=== PATIENT | female | born 1995 | race Caucasian/White ===

== ENCOUNTER 2017-11-20 14:14 | Emergency (ER) | payer MEDICAID ==
[2017-11-20] MEDS: HYDROCODONE/APAP (5/325) TAB PO (16:44)
[2017-11-20 17:07] LABS: ADD MAN DIFF? NO
[2017-11-20 17:08] LABS: WHITE BLOOD COUNT 10.8 10^3/ul (4.8-10.8)
[2017-11-20 17:08] LABS: BASOPHIL # 0.1 10^3/ul (0.0-0.1); BASOPHILS % 0.5 % (0.0-2.0); EOSINOPHILS % 0.1 % (0.0-7.0); HEMATOCRIT 40.2 % (37.0-47.0); HEMOGLOBIN 13.8 g/dl (12.0-16.0); LYMPHOCYTES % 9.3 % (15.0-51.0); MEAN CORPUSCULAR HEMOGLOBIN 31.4 pg (29.0-33.0); MEAN CORPUSCULAR HGB CONC 34.3 g/dl (32.0-37.0); MEAN CORPUSCULAR VOLUME 91.6 fl (82.0-101.0); MEAN PLATELET VOLUME 10.3 fl (7.4-10.4); MONOCYTE # 0.5 10^3/ul (0.3-0.9); MONOCYTES % 4.9 % (0.0-11.0); NEUTROPHIL # 9.1 10^3/ul (1.6-7.5); NEUTROPHILS % 84.8 % (39.0-77.0); PLATELET COUNT 296 10^3/UL (140-415); RED BLOOD COUNT 4.39 10^6/ul (4.20-5.40); RED CELL DISTRIBUTION WIDTH 12.2 % (11.5-14.5)
[2017-11-20 17:27] LABS: BLOOD UREA NITROGEN 7 mg/dl (7-20); CALCIUM 9.4 mg/dl (8.4-10.2); CARBON DIOXIDE 20 mmol/L (21-31); CHLORIDE 105 mmol/L (97-110); CREATININE 0.52 mg/dl (0.44-1.00); GLUCOSE 107 mg/dl (70-220); SODIUM 139 mmol/L (135-144)
[2017-11-20 17:33] LABS: INR 0.95; PROTIME 12.8 Sec (11.9-14.9)
[2017-11-20 17:34] LABS: PARTIAL THROMBOPLASTIN TIME 26.3 Sec (25.0-35.0)
[2017-11-20 17:41] LABS: ANION GAP 17 (8-16)
[2017-11-20 17:45] LABS: POTASSIUM 3.1 mmol/L (3.5-5.1)
[2017-11-20] MEDS: LORAZEPAM 1 MG TAB PO (18:27)
[2017-11-20] MEDS: POTASSIUM CHLORIDE (SR) 20 MEQ TAB PO (18:27)
== END 2017-11-20 18:45 | disposition home or self-care (01) ==
LOC: FTE 14:14
DX: R51 Headache (principal); I10 Essential (primary) hypertension; R07.9 Chest pain, unspecified
CPT/HCPCS: 36415; 70450; 80048; 81025; 85025; 85610; 85730; 93005; 99285-25